=== PATIENT | female | born 1985 | race Caucasian/White ===

== ENCOUNTER 2019-01-22 10:52 | Emergency (ER) | payer MEDICAID ==
[~2019-01-22] VITALS: Ht 175.3 cm; Wt 84.0 kg
[2019-01-22 10:58] VITALS: BP 110/76
--- NOTE | 2019-01-22 11:04 | NUR ---
TO ROOM 15
--- NOTE | 2019-01-22 11:17 | NUR ---
Pt resting on [place] with ultrasound at bedside. TOBY. Pt has spouse at bedside. Call [facility] within reach. Pt c/o flank pain for four days. Pt states she has a past medical history of kidney stones and has had a nephrostomy. No needs expressed at this time.
[2019-01-22 11:43] LABS: BASOPHILS % (AUTO) 1 % (0-1); EOSINOPHILS # (AUTO) 0.12 x10^3/uL (0-0.4); EOSINOPHILS % (AUTO) 1 % (1-7); LYMPHOCYTES # (AUTO) 2.04 x10^3/uL (1-3.4); LYMPHOCYTES % (AUTO) 18 % (22-44); MD NO; MEAN CORPUSCULAR HEMOGLOBIN 30.4 pg (27.0-34.8); MEAN CORPUSCULAR HGB CONC 33.2 g/dL (32.4-35.8); MEAN CORPUSCULAR VOLUME 91.5 fL (80-100); MONOCYTES # (AUTO) 0.69 x10^3/uL (0.2-0.8); MONOCYTES % (AUTO) 6 % (2-9); NEUTROPHILS # (AUTO) 8.59 x10^3/uL (1.8-6.8); NEUTROPHILS % (AUTO) 75 % (42-75); PLATELET COUNT 243 x10^3/uL (130-400); RED BLOOD COUNT 4.99 x10^6/uL (3.82-5.3); RED CELL DISTRIBUTION WIDTH 12.6 % (9.6-15.2)
[2019-01-22 11:51] LABS: CULTURE INDICATED? YES; MICROSCOPIC INDICATED
[2019-01-22 11:54] LABS: ALANINE AMINOTRANSFERASE 28 U/L (12-78); ANION GAP 6 mmol/L (5-15); CHLORIDE 108 mmol/L (98-107)
[2019-01-22 12:02] LABS: ALKALINE PHOSPHATASE 53 U/L (45-117); BILIRUBIN,TOTAL 0.6 mg/dL (0.2-1.0); CREATININE 0.82 mg/dL (0.55-1.02); TOTAL PROTEIN 7.3 g/dL (6.4-8.2)
[2019-01-22] MEDS ORDERED: CEFTRIAXONE 1,000 MG IM ONE (12:30)
[2019-01-22] MEDS ORDERED: CEFTRIAXONE 1,000 MG ONE (13:04)
--- NOTE | 2019-01-22 13:27 | NUR ---
Patient given discharge instructions and they have confirmed that they understand the instructions. Patient ambulatory with steady gait. Pt left with prescription, d/c paperwork, and all personal belongings. Pt states, "I am ready to go, I don't want to stay longer, I have had Rocephin before." TOBY.
== END 2019-01-22 13:29 | disposition home or self-care (01) ==
LOC: ED 13:10
DX: N10 Acute pyelonephritis (principal)
CPT/HCPCS: 36415; 76700; 80053; 81001; 83690; 85025; 87077; 87086; 96372; 99284; J0696; 87186